=== PATIENT | male | born 1960 | race Caucasian/White ===

== ENCOUNTER 2021-04-24 05:58 | Inpatient (IN) ==
[2021-04-19 11:12] LABS: Basophils % 0.3 % (0.0-0.8); Eosinophils # 0.2 10*3/uL (0.0-0.87); Eosinophils % 2.6 % (0.00-10.9); Hematocrit 44.2 VOL% (42.0-52.0); Hemoglobin 15.1 GM/DL (14.0-18.0); Immature Granulocytes % 0.4 %; Immature Granulocytes Absolute 0.03 #; Lymphocytes # 1.8 10*3/uL (1.4-4.0); Lymphocytes % 23.1 % (21.2-54.2); Mean Corpuscular HGB Conc 34.2 GM/DL (32-36); Mean Corpuscular Volume 95.3 FL (87-102); Mean Platelet Volume 10.9 FL (9.6-12.0); Monocytes % 8.2 % (1.7-12.7); Neutrophils % 65.4 % (38.7-73.9); Platelet Count 186 T/CUMM (130-400); Red Blood Count 4.64 MC/CUMM (3.8-5.5); Red Cell Distribution Width 12.6 % (9.3-17.3); White Blood Count 7.6 T/CUMM (4-12)
[2021-04-19 11:18] LABS: Calcium 9.5 MG/DL (8.5-10.1); Osmolality,Calculated 277.7 MOS/KG (273-304)
[~2021-04-24 05:58] MED LIST: ACETAMINOPHEN 500 MG TABLET ONE; ACETAMINOPHEN 500 MG TABLET PO ONE; DIAZEPAM 5 MG TABLET ONE; DIAZEPAM 5 MG TABLET PO ONE; FAMOTIDINE 20 MG TABLET ONE; FAMOTIDINE 20 MG TABLET PO ONE; GABAPENTIN 400 MG CAPSULE ONE; GABAPENTIN 400 MG CAPSULE PO ONE
[2021-04-24] MEDS ORDERED: ERTAPENEM 1,000 MG in SODIUM CHLORIDE 0.9% 100 ML IV ONE (06:00)
[2021-04-24] MEDS ORDERED: ALVIMOPAN 12 MG CAPSULE PO ONE (06:00)
[2021-04-24] MEDS ORDERED: MIDAZOLAM 2 MG/2 ML VIAL ONE (06:07)
[2021-04-24] MEDS ORDERED: ROCURONIUM 50 MG/5 ML VIAL IV ONE (06:07)
[2021-04-24] MEDS ORDERED: LIDOCAINE 2% 5 ML VIAL ONE (06:07)
[2021-04-24] MEDS ORDERED: propofoL 200 MG/20 ML VIAL IV ONE (06:07)
[2021-04-24] MEDS ORDERED: fentaNYL 100 MCG/2 ML VIAL ONE ×2 (06:08→08:00)
[2021-04-24] MEDS ORDERED: LIDOCAINE 1% 5 ML VIAL ONE (06:33)
[2021-04-24] MEDS ORDERED: BUPIVACAINE MPF 0.25% 30 ML VIAL ONE (06:33)
[2021-04-24] MEDS ORDERED: DEXAMETHASONE 4 MG/1 ML VIAL ONE (06:33)
[2021-04-24] MEDS: LACTATED RINGERS 1,000 ML IV SCH ×4 (06:40→21:25)
[2021-04-24] MEDS ORDERED: ALBUMIN 5% 0 GM/0 ML VIAL IV ONE (06:42)
[2021-04-24] MEDS ORDERED: LACTATED RINGERS 1,000 ML IV ONE (08:11)
[2021-04-24] MEDS ORDERED: INDOCYANINE GREEN 25 MG VIAL IV ONE (08:25)
[2021-04-24] MEDS ORDERED: GLYCOPYRROLATE 0.4 MG/2 ML VIAL ONE (08:42)
[2021-04-24] MEDS ORDERED: ONDANSETRON 4 MG/2 ML VIAL ONE (08:42)
[2021-04-24] MEDS ORDERED: NEOSTIGMINE 10 MG/10 ML VIAL ONE (08:42)
[2021-04-24] MEDS ORDERED: TISSUE ADHESIVE 1 EACH APPLICATOR TOP ONE (09:01)
[2021-04-24] MEDS ORDERED: SEVOFLURANE 1 UNIT/15 MINUTE INH ONE (09:02)
[2021-04-24] MEDS ORDERED: ONDANSETRON 4 MG/2 ML VIAL IV PRN ×2 (09:46→10:41)
[2021-04-24] MEDS: HYDROmorphone 2 MG/1 ML VIAL IV PRN ×2 (09:50→09:58)
[2021-04-24] MEDS ORDERED: HYDROmorphone 2 MG/1 ML VIAL IV PRN (10:41)
[2021-04-24 11:03] LABS: Basophils % 0.2 % (0.0-0.8); Eosinophils # 0.1 10*3/uL (0.0-0.87); Eosinophils % 0.4 % (0.00-10.9); Hematocrit 40.5 VOL% (42.0-52.0); Hemoglobin 13.5 GM/DL (14.0-18.0); Immature Granulocytes % 0.6 %; Immature Granulocytes Absolute 0.07 #; Lymphocytes % 8.3 % (21.2-54.2); Mean Corpuscular HGB Conc 33.3 GM/DL (32-36); Mean Corpuscular Volume 94.6 FL (87-102); Monocytes % 2.3 % (1.7-12.7); Neutrophils % 88.2 % (38.7-73.9); Platelet Count 171 T/CUMM (130-400); Red Blood Count 4.28 MC/CUMM (3.8-5.5); Red Cell Distribution Width 12.3 % (9.3-17.3); White Blood Count 12.6 T/CUMM (4-12)
[2021-04-24 11:24] LABS: Calcium 8.5 MG/DL (8.5-10.1); Osmolality,Calculated 282.4 MOS/KG (273-304); Potassium 4.6 MMOL/L (3.5-5.1)
[2021-04-24] MEDS: KETOROLAC 30 MG/1 ML VIAL IV SCH ×2 (12:21→17:50)
[2021-04-24] MEDS: OMEGA 3 ACID ETHYL ESTERS 1 GM CAPSULE PO SCH (21:18)
[2021-04-24] MEDS: MAGNESIUM CHLORIDE 64 MG TABLET PO SCH (21:18)
[2021-04-24] MEDS: ASCORBIC ACID 500 MG TABLET PO SCH (21:19)
[2021-04-24] MEDS: ALVIMOPAN 12 MG CAPSULE PO SCH (21:19)
[2021-04-25] MEDS: KETOROLAC 30 MG/1 ML VIAL IV SCH ×2 (00:04→06:01)
[2021-04-25 04:59] LABS: Basophils % 0.1 % (0.0-0.8); Eosinophils % 0.1 % (0.00-10.9); Hematocrit 30.3 VOL% (42.0-52.0); Immature Granulocytes % 0.5 %; Immature Granulocytes Absolute 0.07 #; Lymphocytes # 1.4 10*3/uL (1.4-4.0); Lymphocytes % 9.2 % (21.2-54.2); Mean Corpuscular Volume 92.9 FL (87-102); Mean Platelet Volume 10.7 FL (9.6-12.0); Monocytes % 7.4 % (1.7-12.7); Neutrophils % 82.7 % (38.7-73.9); Platelet Count 158 T/CUMM (130-400); Red Cell Distribution Width 12.2 % (9.3-17.3); White Blood Count 15.5 T/CUMM (4-12)
[2021-04-25 05:01] LABS: Hemoglobin 10.6 GM/DL (14.0-18.0); Red Blood Count 3.26 MC/CUMM (3.8-5.5)
[2021-04-25 05:04] LABS: Calcium 7.7 MG/DL (8.5-10.1); Osmolality,Calculated 276.8 MOS/KG (273-304)
[2021-04-25] MEDS ORDERED: ENOXAPARIN 40 MG/0.4 ML SYRINGE SUBCUT SCH (06:00)
[2021-04-25] MEDS: LACTATED RINGERS 1,000 ML IV SCH ×2 (06:04→11:02)
[2021-04-25] MEDS ORDERED: LEVOTHYROXINE 150 MCG TABLET PO SCH (06:30)
[2021-04-25] MEDS: ASCORBIC ACID 500 MG TABLET PO SCH (08:51)
[2021-04-25] MEDS: MAGNESIUM CHLORIDE 64 MG TABLET PO SCH (08:51)
[2021-04-25] MEDS: OMEGA 3 ACID ETHYL ESTERS 1 GM CAPSULE PO SCH (08:51)
[2021-04-25] MEDS: ALVIMOPAN 12 MG CAPSULE PO SCH (08:52)
[2021-04-25] MEDS ORDERED: ASPIRIN CHEW 81 MG TABLET PO SCH (09:00)
[2021-04-25] MEDS ORDERED: ROSUVASTATIN 20 MG TABLET PO SCH (09:00)
[2021-04-25 09:54] LABS: Hematocrit 31.2 VOL% (42.0-52.0); Hemoglobin 11.2 GM/DL (14.0-18.0)
[2021-04-25 11:18] VITALS: BP 129/65
== END 2021-04-25 12:29 | disposition home or self-care (01) | DRG 331 ==
LOC: N.OR 05:58 → N.SDSINP 06:01 → N.3E 09:19
PROVIDERS: ADMIT Surgery; ATTEND Surgery